=== PATIENT | female | born 1990 | race African-American/Black ===

== ENCOUNTER → 2017-05-12 | Outpatient (REF) ==
[~2017-05-12] MED LIST: ACET50TA PO; IBUP80TA PO; LANOOIN21 EX; NORE0.353 PO; PRENTAB29 PO
== END ==
LOC: M LAB 21:36
PROVIDERS: ATTEND Nurse Practitioner Adult Health
DX: Z02.89 Encounter for other administrative examinations (principal)

== ENCOUNTER → 2017-11-03 | Outpatient (REF) | payer OTHER ==
[2017-11-03 22:13] LABS: CHLAMYDIA DNA AMPLIFICATION POSITIVE (NEGATIVE); GC DNA AMPLIFICATION NEGATIVE (NEGATIVE)
== END ==
LOC: M LAB REF 19:05
DX: Z20.2 Contact with and (suspected) exposure to infections with a predominantly sexual mode of transmission (principal)